=== PATIENT | female | born 1990 | race Caucasian/White ===

== ENCOUNTER 2018-09-26 20:05 | Emergency (ER) | payer MEDICAID ==
[2018-09-26 20:24] LABS: Bilirubin Negative (Negative); Blood, Urine Negative (Negative); Clarity Clear (Clear); Glucose, Urine (Dipstick) Negative (Negative); Leukocyte Negative (Negative); Nitrite Negative (Negative); Pregnancy Test - Urine (BHCG) POSITIVE (Negative); Pregu Control Background? CLEAR/WHITE (CLR/WHITE); Pregu Control Bar Appear? YES (CONTROL BAR); Protein, Urine (Dipstick) Negative (Neg-Trace); Specific Gravity 1.015 (1.002-1.036); Specific Gravity, Urine 1.015 (1.005-1.030); Urobilinogen 0.2 mg/dL (0.2-1.0)
[2018-09-26 20:34] LABS: #Eosinphils 0.2 thou/uL (0.0-0.7); #Lymphocytes 2.4 thou/uL (1.20-3.40); #Monocytes 0.6 thou/uL (0.11-0.59); #Neutrophils 8.8 thou/uL (1.40-6.50); %Basophils 0.4 % (0.0-1.0); %Eosinophils 1.7 % (0.0-10.0); %Lymphocytes 19.5 % (21.0-51.0); %Monocytes 5.1 % (0.0-10.0); %Neutrophils 73.3 % (42.0-75.0); Hemoglobin 11.5 g/dL (12.0-16.0); Mean Corpuscular HGB CONC 33.8 g/dL (32.0-36.0); Mean Corpuscular Hemoglobin 31.3 pg (27.0-31.0); Mean Corpuscular Volume 92.4 fL (78.0-98.0); Mean Platelet Volume 7.8 fL (7.4-10.4); Platelet Count 254 thou/uL (130-400); RBC Distribution Width 11.4 % (11.5-14.5); Red Blood Cell (RBC) Count 3.67 mill/uL (4.20-5.40)
[2018-09-26 20:56] LABS: ALT (SGPT) 12 U/L (8-55); AST (SGOT) 13 U/L (5-34); Albumin 3.4 g/dL (3.5-5.0); Alkaline Phosphatase 69 U/L (40-150); Anion Gap 14 mmol/L (10-20); BUN (Urea Nitrogen) 7 mg/dL (7.0-18.7); Bilirubin, Total 0.2 mg/dL (0.2-1.2); Calc. Creatinine Clearance 0 mL/min (70-130); Carbon Dioxide 20 mmol/L (22-29); Chloride 105 mmol/L (98-107); Estimated GFR-MDRD Greater than 90; Globulin 3.2 g/dL (2.4-3.5); Glucose 95 mg/dL (70-105); Potassium 3.5 mmol/L (3.5-5.1); Protein, Total 6.6 g/dL (6.0-8.3); Sodium 135 mmol/L (136-145)
--- NOTE | 2018-09-26 22:13 | ULT ---
Obstetric sonogram HISTORY: Pelvic pain. FINDINGS: Single intrauterine gestation in variable presentation. Predominantly cephalic. Grade 0 yang centa is anterior. No evidence of placenta previa or abruption. Amniotic fluid is within normal limits. Heart motion demonstrated at 152 bpm. Four-chamber heart. No gross intracranial abnormalities are apparent. 2 vessels are seen within the umbilical, cord. A umbilical cord. Three-vessel CORD not well documented. Measurements are as follows: Biparietal diameter 18 weeks 2 days. Head circumference 17 weeks 5 days. Abdominal circumference 17 weeks 6 days. Femur length 17 weeks 6 days. Hadlock 90 percentile. IMPRESSION: Single viable intrauterine gestation. Estimated gestational age 18 weeks 0 days. Three-vessel umbilical cord. No evidence of placenta previa or abruption.
--- NOTE | 2018-09-26 22:15 | ULT ---
Sonogram right lower quadrant HISTORY: Right lower quadrant pain. FINDINGS: Sonographic evaluation of the right abdomen in region of pain was performed. Gravid uterus partially visualized. No free fluid or fluid collections. Appendix not directly visualized. IMPRESSION: Nonvisualization of the appendix. No significant abnormalities are demonstrated.
== END 2018-09-26 22:31 | disposition home or self-care (01) ==
LOC: ERS 20:05
DX: O99.89 Other specified diseases and conditions complicating pregnancy, childbirth and the puerperium (principal); R10.30 Lower abdominal pain, unspecified; Z3A.18 18 weeks gestation of pregnancy; Z87.891 Personal history of nicotine dependence
CPT/HCPCS: 36415; 76705; 76856; 80053; 81003; 81025; 85025; 93976

== ENCOUNTER 2018-11-29 22:05 | Day surgery (SDC) | payer MEDICAID, OTHER | END 2018-11-29 23:05 | disposition home or self-care (01) | LOC: L&D/OP 22:05 | PROVIDERS: ATTEND Student in an Organized Health Care Education/Training Program | DX: O99.89 Other specified diseases and conditions complicating pregnancy, childbirth and the puerperium (principal); R10.9 Unspecified abdominal pain; R07.9 Chest pain, unspecified ==

== ENCOUNTER 2018-11-29 23:07 | Observation (INO) | payer MEDICAID, OTHER ==
[2018-11-29 23:46] LABS: #Eosinphils 0.2 thou/uL (0.0-0.7); #Lymphocytes 2.3 thou/uL (1.20-3.40); #Monocytes 0.7 thou/uL (0.11-0.59); #Neutrophils 8.5 thou/uL (1.40-6.50); %Basophils 0.4 % (0.0-1.0); %Eosinophils 1.4 % (0.0-10.0); %Lymphocytes 19.8 % (21.0-51.0); %Monocytes 5.6 % (0.0-10.0); %Neutrophils 72.9 % (42.0-75.0); Hemoglobin 12.6 g/dL (12.0-16.0); Mean Corpuscular HGB CONC 34.8 g/dL (32.0-36.0); Mean Corpuscular Hemoglobin 31.2 pg (27.0-31.0); Mean Corpuscular Volume 89.8 fL (78.0-98.0); Mean Platelet Volume 7.3 fL (7.4-10.4); Platelet Count 279 thou/uL (130-400); RBC Distribution Width 11.4 % (11.5-14.5); Red Blood Cell (RBC) Count 4.04 mill/uL (4.20-5.40); White Blood Cell (WBC) Count 11.6 thou/uL (4.8-10.8)
[2018-11-30 00:05] LABS: ALT (SGPT) 12 U/L (8-55); AST (SGOT) 13 U/L (5-34); Albumin 3.6 g/dL (3.5-5.0); Alkaline Phosphatase 99 U/L (40-150); Anion Gap 11 mmol/L (10-20); BUN (Urea Nitrogen) 9 mg/dL (7.0-18.7); Bilirubin, Total 0.2 mg/dL (0.2-1.2); Calc. Creatinine Clearance 0 mL/min (70-130); Calcium 9.8 mg/dL (7.8-10.44); Carbon Dioxide 23 mmol/L (22-29); Chloride 105 mmol/L (98-107); Estimated GFR-MDRD Greater than 90; Globulin 3.5 g/dL (2.4-3.5); Glucose 90 mg/dL (70-105); Lipase 46 U/L (8-78); Potassium 3.5 mmol/L (3.5-5.1); Protein, Total 7.1 g/dL (6.0-8.3); Sodium 135 mmol/L (136-145)
[2018-11-30] MEDS ORDERED: Mag-Al 1200 mg/1200 mg/30 ML UDCUP ONE (00:19)
[2018-11-30] MEDS ORDERED: Acetaminophen 500 MG TAB ONE (00:19)
[2018-11-30] MEDS ORDERED: Lidocaine Viscous Sol 2% 15 ml UD Cup ONE (00:19)
[2018-11-30] MEDS ORDERED: Ondansetron PF 4 MG/2 ML Vial ONE (01:09)
[2018-11-30] MEDS ORDERED: Morphine 4 MG/ML VIAL ONE ×2 (01:09→02:13)
[2018-11-30] MEDS ORDERED: Morphine 4 MG/ML VIAL SLOW IVP PRN ×2 (04:20→04:23)
[2018-11-30] MEDS ORDERED: Promethazine HCl 25 MG/ML VIAL IM/IV PRN (04:24)
[2018-11-30] MEDS ORDERED: Lactated Ringer's 1,000 ML IV SCH (04:45)
[2018-11-30 04:50] VITALS: BP 130/72; TEMP 98.4
[2018-11-30 04:51] VITALS: BMI 32.9
--- NOTE | 2018-11-30 07:56 | ULT ---
PRELIMINARY REPORT/[facility]/EMERGENCY AFTER HOURS PROCEDURE: EXAM: US Abdomen Limited, Right Upper Quadrant EXAM DATE/TIME: 11/30/2018 12:17 AM CLINICAL HISTORY: 28 years old, female; Abdominal pain; ; Patient HX: Epigastric pain today, getting worse; Add itional info: Patient 27 wks . TECHNIQUE: Imaging protocol: Real-time ultrasound of the abdomen with image documentation. Examination was focus ed on the right upper quadrant. COMPARISON: No relevant prior studies available. FINDINGS: Liver: No masses. Gallbladder: Gallbladder distended at 11 cm but without stone, sludge, or wall thickening. Common bile duct: 3 mm. No stones. No dilation. Pancreas: Visualized pancreas is unremarkable. Right kidney: 11.0 cm in length. No mass. No hydronephrosis. IMPRESSION: Distended gallbladder. Otherwise unremarkable exam. Thank you for allowing us to participate in the care of your patient. Dictated and Authenticated by: Maine Garza MD 11/30/2018 12:55 AM Central Time ([place] & [place]) FINAL REPORT GALLBLADDER ULTRASOUND: Final report is in agreement with the preliminary report provided above. No evidence of cholelithiasis or acute cholecystitis.
--- NOTE | 2018-11-30 08:26 | CT ---
PRELIMINARY REPORT/[facility]/EMERGENCY AFTER HOURS PROCEDURE: EXAM: CT Angiography Chest With Contrast EXAM DATE/TIME: 11/30/2018 1:44 AM CLINICAL HISTORY: 28 years old, female; Chest pain; Patient HX: 28 y/o F, currently at 6 mo gestation, present to ED following eval on l&d for cp. No h/o dvt, pe. High ddimer 2.2 TECHNIQUE: Imaging protocol: Computed tomographic angiography of the chest with intravenous contrast. 3D renderi ng: MIP reconstructed images were created and reviewed. COMPARISON: No relevant prior studies available. FINDINGS: Pulmonary arteries: No pulmonary emboli. Aorta: No aortic aneurysm. No aortic dissection. Lungs: No focal infiltrate. No masses. Pleural space: No pneumothorax. No pleural effusion. Heart: No cardiomegaly. No pericardial effusion. Lymph nodes: Unremarkable. No enlarged lymph nodes. Bones/joints: Unremarkable. No acute fracture. Soft tissues: Unremarkable. IMPRESSION: No acute findings. Thank you for allowing us to participate in the care of your patient. Dictated and Authenticated by: Maine Garza MD 11/30/2018 1:59 AM Central Time ([place] & [place]) FINAL REPORT CT ANGIOGRAM OF THE CHEST: Date: 11/30/18 HISTORY: Chest pain. Evaluate for pulmonary artery dissection. Patient is currently 6 months . COMPARISON: None. TECHNIQUE: CT angiogram of the chest is performed in the axial plane. Three-dimensional reformatted images are s ubmitted for interpretation. FINDINGS: No mediastinal mass, lymphadenopathy, or hematoma. Heart size normal. No significant pericardial flui d. Visualized upper solid abdominal viscera is unremarkable. Trachea and central bronchi are patent. No masses or consolidation. Minimal dependent atelectatic pauline nges. No pleural effusion or pneumothorax. Adequate contrast opacification of pulmonary arterial system to the level of the segmental arteries. No filling defect to suggest thromboembolism. IMPRESSION: This report is in agreement with the preliminary report by Jacque. No evidence of pulmonary artery embo lism to the level of the segmental arteries. POS: [facility]
--- NOTE | 2018-11-30 08:41 | PDOC.LDPN ---
Labor & Delivery Progress Note - Subjective Subjective: comfortable (, epigastric/chest pain has completely resolved. Hungry. No ctx, VB LOF. Good FM. ) - Objective Vital signs reviewed and normal: yes General: NAD Uterine fundus: non tender FHT: category 1 - Assessment (1) Acute epigastric pain Code(s): R10.13 - EPIGASTRIC PAIN Current Visit: Yes Status: Acute -: Negative w/u other than gallbladder distension. Normal labs. Not consistent with acute cholecystitis, appendicitis or pancreatitis. W/u neg for SC or PE. Likely c/w GERD. Rec scheduled pepcid BID. FHT Cat 1 for GA. DC home. FU as scheduled in clinic.
--- NOTE | 2018-11-30 08:54 | RAD ---
FRONTAL VIEW CHEST: COMPARISON: No prior comparison. INDICATION: Chest pain. FINDINGS: There is no lobar consolidation, effusion, or pneumothorax. Mild elevation of the right hemidiaphrag m is present. There is accentuation of the cervical spine by portable technique. IMPRESSION: No focal consolidation. POS: C
[2018-11-30] MEDS ORDERED: Famotidine 20 MG TAB PO SCH (09:00)
--- NOTE | 2018-11-30 10:21 | HP ---
ADDITIONAL ATTENDING PHYSICIAN: Janelle Lagunas MD EVALUATING PHYSICIAN: Irwin Miramontes MD CHIEF COMPLAINT: Chest pain. HISTORY OF PRESENT ILLNESS: Ms. Beltrán is a 28-year-old white female, G2, P1-0-0-1 with an estimated date of confinement of 02/25/2019, who presents to the emergency room this evening complaining of acute onset chest pain with associated right upper quadrant pain. She has had pain, but no significant nausea. She denies fever or chills. She also denies associated ruptured membranes or vaginal bleeding. Due to chest pain, she was evaluated in the emergency room and evaluation there demonstrated a normal CT angiogram of the chest and a normal abdominal ultrasound that showed only a distended gallbladder. Her chest x-ray and EKG were both normal. She is brought to Labor and delivery now for pain management and further consideration. PAST OBSTETRICAL HISTORY: Includes one section at term apparently done for distress. PAST MEDICAL HISTORY: None. PAST SURGICAL HISTORY: section as above. CURRENT MEDICATIONS: vitamin. ALLERGIES: NO KNOWN ALLERGIES. SOCIAL HISTORY: Denies tobacco, alcohol, or drug use. FAMILY HISTORY: Unremarkable. REVIEW OF SYSTEMS: Denies decreased movement, ruptured membranes, or vaginal bleeding. PHYSICAL EXAMINATION: VITAL SIGNS: In Labor and Delivery, her vital signs are stable and she is afebrile. GENERAL: She feels improved after receiving pain medicine in the emergency room. CHEST: Clear. CARDIOVASCULAR: Regular rate and rhythm. ABDOMEN: Soft, gravid, and nontender. PELVIC: Deferred. monitoring shows stable heart tones with no contractions. LABORATORY DATA: White count 11.6, hemoglobin and hematocrit are 12.6 and 36.2, and platelet counts 279,000. D-dimer is elevated at 2.20. Sodium 135, potassium 3.5, creatinine 0.71, glucose is 90, total bilirubin 0.2, AST 13, ALT 12, and alkaline phosphatase 99. Troponin less than 0.010. Lipase is 46. ASSESSMENT: 1. A 27-week intrauterine . 2. Right upper quadrant pain with chest pain. PLAN: In view of her negative workup for pulmonary embolism and negative cardiac evaluation and her only finding being that of a distended gallbladder, she will be observed here in Labor and Delivery and be given pain medicine and antiemetic. Consideration of either a GI or a surgical consult will be made in the morning. Dr. Lagunas has been notified. Job ID: [id number]
== END 2018-11-30 10:15 | disposition home health service (06) ==
LOC: ERS 23:07 → L&D 11-30 03:19
PROVIDERS: ADMIT Obstetrics & Gynecology; ATTEND Obstetrics & Gynecology
DX: O99.89 Other specified diseases and conditions complicating pregnancy, childbirth and the puerperium (principal); R10.13 Epigastric pain; R07.9 Chest pain, unspecified; Z3A.27 27 weeks gestation of pregnancy
CPT/HCPCS: 36415; 59025; 71045; 71275; 76705; 80053; 83690; 84484; 85025; 85379; 93005; 94760; 96361; 96372; 96374; 96375; 96376; G0378; J0500; J2270; J2405

== ENCOUNTER 2019-02-15 05:18 | Inpatient (IN) | payer OTHER ==
[2019-02-15] MEDS ORDERED: hydrALAZINE 20 MG/ML VIAL SLOW IVP PRN ×2 (05:48→10:40)
[2019-02-15] MEDS ORDERED: Ondansetron PF 4 MG/2 ML Vial IVP PRN ×3 (05:48→10:40)
[2019-02-15] MEDS ORDERED: Promethazine HCl 25 MG/ML VIAL IM PRN ×3 (05:48→10:40)
[2019-02-15] MEDS ORDERED: Bicitra 30 ML UDCUP PO SCH (06:00)
[2019-02-15] MEDS ORDERED: CEFAZOLIN 2 GM in Premix Bag 1 BAG IVPB SCH (06:00)
[2019-02-15 06:34] LABS: Hemoglobin 11.5 g/dL (12.0-16.0); Mean Corpuscular HGB CONC 33.6 g/dL (32.0-36.0); Mean Corpuscular Hemoglobin 29.1 pg (27.0-31.0); Mean Corpuscular Volume 86.6 fL (78.0-98.0); Mean Platelet Volume 8.1 fL (7.4-10.4); Platelet Count 307 thou/uL (130-400); RBC Distribution Width 11.7 % (11.5-14.5); Red Blood Cell (RBC) Count 3.95 mill/uL (4.20-5.40); White Blood Cell (WBC) Count 13.4 thou/uL (4.8-10.8)
[2019-02-15] MEDS ORDERED: Promethazine HCl 25 MG SUPP PR PRN (07:09)
[2019-02-15] MEDS ORDERED: diphenhydrAMINE 50 MG/ML VIAL IVP PRN (07:09)
[2019-02-15] MEDS ORDERED: Naloxone HCl 0.4 mg/ml Vial IV PRN (07:09)
[2019-02-15] MEDS ORDERED: Meperidine HCl/PF 25 MG/ML VIAL SLOW IVP PRN (07:09)
[2019-02-15] MEDS ORDERED: HYDROmorphone 2 MG/ML VIAL SLOW IVP PRN (07:09)
[2019-02-15] MEDS ORDERED: Naloxone HCl 0.4 mg/ml Vial IVP PRN ×2 (07:09)
[2019-02-15] MEDS ORDERED: L&D-Morphine 4 MG/ML VIAL SLOW IVP PRN (07:09)
[2019-02-15] MEDS ORDERED: Ondansetron HCl/PF 4 MG/2 ML Vial IVP PRN (07:09)
[2019-02-15 07:11] LABS: HBSAg Index 0.12 S/CO (0-0.99); Hep B Surf Ag Non-Reactive S/CO (NonReactive)
[2019-02-15] MEDS ORDERED: Oxytocin 10 UNITS/ML VIAL ONE ×2 (07:15→08:03)
[2019-02-15] MEDS ORDERED: Communication Order-Pharmacy FS SCH (07:15)
[2019-02-15] MEDS ORDERED: Ketorolac Tromethamine 30 MG/ML VIAL IVP SCH (07:15)
[2019-02-15] MEDS ORDERED: Ondansetron PF 4 MG/2 ML Vial ONE (07:15)
[2019-02-15] MEDS ORDERED: MORPHINE 5 MG/10 ML PF VIAL ONE (07:15)
[2019-02-15] MEDS ORDERED: ePHEDrine/0.9% NaCl/PF SYRINGE 50 mg/10 ml ONE (07:15)
[2019-02-15] MEDS: Lactated Ringer's 1,000 ML IV SCH ×2 (07:20→18:09)
--- NOTE | 2019-02-15 07:30 | PDOC.LDHP ---
Labor and Delivery H&P Chief complaint: scheduled section HPI: 28yo at 39w0d by LMP for RCS. No complaints. Current gestational age (weeks): 39 Due date: 02/22/19 Dating criteria: last menstrual period Grav: 2 Para: 1 Current complications: none Abnormal US findings: Yes (SUA) Past Medical History: LSIL pap, for colpo PP Current medications: pre- vitamins, iron Previous surgical history: low tranverse CS, other (hernia repair age 8mo old) Allergies/Adverse Reactions: Allergies Allergy/AdvReac Type Severity Reaction Status Date / Time No Known Drug Allergies Allergy Verified 11/30/18 04:56 Social history: none - Physical Exam Vital signs reviewed and normal: yes General: NAD Heart: RRR Lungs: CTAB Abdomen: gravid Extremeties: no edema FHT: category 1 - OB Labs Blood type: O RH: positive Antibody Screen: negative HIV: negative RPR: negative HEPSAg: negative 1 hour GCT: negative GBS: negative Urine drug screen: negative Rubella: immune - Assessment L&D Assessment: scheduled repeat section - Plan Plan: admit to L&D, to OR for section, informed consent obtained, anesthesia consult for pain management
--- NOTE | 2019-02-15 07:38 | PDOC.OPDEL ---
OB Operative/Delivery Note Delivery Dr/Surgeon: Janneth Assist: PAUL Padilla Pre-Delivery Diagnosis: scheduled section Procedure/Post Delivery Dx: repeat low transverse CS Weeks gestation: 39 Anesthesia: spinal - Findings A Sex: female Weight: 7 lb 9 oz - 1 min: 8 - 5 min: 9 - Additional Findings/Plan Placenta delivered: spontaneous findings: low transverse hysterotomy without extension, normal uterus, normal tubes, normal ovaries Estimated blood loss: 500 Post delivery plan: routine recovery
[2019-02-15] MEDS ORDERED: PHENYLEPHRINE-NS 100 MCG/ML 10 ML SYRINGE ONE (07:46)
[2019-02-15 08:35] VITALS: BMI 42.6
--- NOTE | 2019-02-15 09:34 | OP ---
DATE OF PROCEDURE: 02/15/2019 PREOPERATIVE DIAGNOSES: 1. Intrauterine at 39 weeks and 0 days. 2. Prior section x1, declines trial of labor. 3. Single umbilical artery. POSTOPERATIVE DIAGNOSES: 1. Intrauterine at 39 weeks and 0 days. 2. Prior section x1, declines trial of labor. 3. Single umbilical artery. PROCEDURE PERFORMED: Repeat low transverse section via Pfannenstiel skin incision. ANESTHESIA: Spinal. 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 COMPLICATIONS: None. DRAINS: Hubbard catheter. PATHOLOGY: None. FINDINGS: Female infant, cephalic presentation, clear amniotic fluid. Apgars 8 and 9. Weight 7 pounds and 9 ounces. Hysterotomy without extension. Normal uterus, ovaries, and tubes bilaterally. DESCRIPTION OF PROCEDURE: The patient was taken to the operating room, where spinal anesthesia was obtained without difficulty. The patient was prepped and draped in a sterile fashion in the dorsal supine position with a leftward tilt. After ensuring adequacy of anesthesia, a Pfannenstiel skin incision was made and carried down to the underlying subcutaneous tissue with a knife. The fascia was nicked in the midline with the knife and carried laterally with the Morrison scissors. The superior aspect of the fascia was tented with 2 Gissell's and dissected off the rectus with the Morrison scissors. The rectus perforators were cauterized. The inferior aspect of the fascia was tented with 2 Gissell's and dissected off the rectus down to the pubic symphysis with the Bovie. The rectus was bluntly divided in the midline. The peritoneum was bluntly entered into and manually retracted. The Sridhar O retractor was placed and the lower uterine segment was incised in a transverse fashion extended with a Syed maneuver. The 's head was brought to the hysterotomy and delivered with fundal pressure. The 's cord was clamped and handed to awaiting Fermin team. The placenta was allowed to spontaneously deliver. The uterus was exteriorized, cleared of all clots and debris and the posterior cul-de-sac was lapped out. The uterus was placed back into the abdomen and the hysterotomy was repaired with #1 Monocryl in a running locking fashion with excellent hemostasis noted. The pelvis and pericolic gutters were irrigated and suctioned. Hemostasis was again noted. The Sridhar O retractor was removed. The rectus muscles were examined and noted to be hemostatic. The fascia was reapproximated with a 0 PDS suture x2 with excellent reapproximation. The subcutaneous tissue was irrigated and cauterized of any bleeders and reapproximated with a 2-0 plain gut in a running fashion. The skin was closed with 4-0 Monocryl in a subcuticular fashion. Dermabond was applied as well as the pressure dressing. The patient tolerated the procedure well. Sponge, lap, and needle counts correct x2. The patient was taken to recovery room in stable condition. The patient received Ancef 2 g prior to the procedure. Job ID: [id number]
[2019-02-15] MEDS ORDERED: NS / Oxytocin 40 units/1000ml 1,000 ML ONE (10:00)
[2019-02-15] MEDS ORDERED: Meperidine HCl/PF 25 MG/ML VIAL ONE (10:04)
[2019-02-15] MEDS ORDERED: Ketorolac Tromethamine 30 MG/ML VIAL ONE (10:05)
[2019-02-15] MEDS ORDERED: diphenhydrAMINE 50 MG/ML VIAL ONE (10:05)
[2019-02-15] MEDS: Ketorolac Tromethamine 30 MG/ML VIAL IVP PRN ×3 (10:09→21:32)
[2019-02-15 10:35] LABS: Syphilis Antibody Nonreactive (Nonreactive); Syphilis Antibody Index 0.06 S/CO (<1.00 Non-Reactive)
[2019-02-15] MEDS ORDERED: Adacel (T-DAP) 0.5 ML SYRINGE IM ONE (10:40)
[2019-02-15] MEDS ORDERED: Acetaminophen 325 MG TAB PO PRN (10:40)
[2019-02-15] MEDS ORDERED: Zolpidem Tartrate 5 MG TAB PO PRN (10:40)
[2019-02-15] MEDS ORDERED: HYDROcodone/Acetaminophen 5/325 mg Tablet PO PRN (10:40)
[2019-02-15] MEDS ORDERED: Bisacodyl 10 MG SUPP PR PRN (10:40)
[2019-02-15] MEDS: diphenhydrAMINE 25 MG CAP PO PRN ×2 (14:43→21:53)
[2019-02-15] MEDS: Lanolin Ointment 7 GM TUBE TOP PRN (18:09)
[2019-02-15] MEDS: Ibuprofen 800 MG TAB PO SCH ×2 (18:16→23:07)
[2019-02-15] MEDS: Simethicone Chewable 80 MG TAB PO PRN ×2 (18:32→21:32)
[2019-02-15] MEDS ORDERED: FLU VACC QS2019-20(6MOS UP)/PF 60 MCG/0.5 ML SYRINGE IM ONE (21:00)
[2019-02-15] MEDS: Docusate Calcium (SURFAK) 240 MG CAP PO SCH (21:32)
[2019-02-15] MEDS: HYDROcodone/Acetaminophen 5/325 mg Tablet PO PRN (22:31)
[2019-02-15] MEDS: Prenatal Vitamin 1 TAB PO SCH (23:06)
[2019-02-15] MEDS: Ferrous Sulfate 325 MG TAB PO SCH (23:07)
[2019-02-16] MEDS: HYDROcodone/Acetaminophen 5/325 mg Tablet PO PRN ×5 (03:12→20:29)
[2019-02-16 04:57] LABS: Hemoglobin 10.6 g/dL (12.0-16.0); Mean Corpuscular Hemoglobin 29.7 pg (27.0-31.0); Mean Corpuscular Volume 87.4 fL (78.0-98.0); Mean Platelet Volume 7.8 fL (7.4-10.4); Platelet Count 286 thou/uL (130-400); RBC Distribution Width 11.6 % (11.5-14.5); Red Blood Cell (RBC) Count 3.58 mill/uL (4.20-5.40); White Blood Cell (WBC) Count 12.5 thou/uL (4.8-10.8)
[2019-02-16] MEDS: Ibuprofen 800 MG TAB PO SCH ×3 (05:10→22:15)
[2019-02-16] MEDS: Simethicone Chewable 80 MG TAB PO PRN ×2 (07:38→15:59)
--- NOTE | 2019-02-16 07:45 | PDOC.PP ---
Post Progress Note Post Day #: 1 Subjective: Doing well, complains only of a little soreness when moving. PO intake tolerated: yes Flatus: yes Ambulation: yes Vital Signs (12 hours) Temp Pulse Resp BP BP 02/16/19 03:30 98.1 F 108 H 16 104/70 02/15/19 23:30 98.6 F 84 16 132/78 Weight Weight 204 lb - Physical Examination General: NAD Respiratory: non-labored breathing Abdominal: lochia (normal), no distention, appropriately TTP Fundus firm & at: below umbilicus Skin: CS incision dry & intact (dressing clean, dry and in place), no rash Neurological: no gross focal deficits Psychiatric: A&Ox3, normal affect Result Diagrams: 02/16/19 04:23 Additional Labs: Post Labs Blood Type O POSITIVE 02/15/19 06:15 Hep Bs Antigen Non-Reactive S/CO (NonReactive) 02/15/19 06:15 (1) delivery delivered Code(s): O82 - ENCOUNTER FOR DELIVERY WITHOUT INDICATION Status: Acute - Assessment/Plan Continue routine postop management. D/c home tomorrow or Monday.
[2019-02-16] MEDS: Docusate Calcium (SURFAK) 240 MG CAP PO SCH ×2 (10:22→22:15)
[2019-02-16] MEDS: Prenatal Vitamin 1 TAB PO SCH (10:22)
[2019-02-16] MEDS: Lanolin Ointment 7 GM TUBE TOP PRN (11:55)
[2019-02-16] MEDS: Ferrous Sulfate 325 MG TAB PO SCH ×2 (20:24→22:13)
[2019-02-17] MEDS: HYDROcodone/Acetaminophen 5/325 mg Tablet PO PRN ×4 (00:32→13:25)
[2019-02-17] MEDS: Ibuprofen 800 MG TAB PO SCH ×2 (04:44→13:23)
[2019-02-17 08:20] VITALS: BP 108/76; TEMP 98.3
[2019-02-17] MEDS: Docusate Calcium (SURFAK) 240 MG CAP PO SCH (09:05)
[2019-02-17] MEDS: Prenatal Vitamin 1 TAB PO SCH (09:05)
[2019-02-17] MEDS: Ferrous Sulfate 325 MG TAB PO SCH (09:27)
[2019-02-17] MEDS: Lanolin Ointment 7 GM TUBE TOP PRN (12:32)
[2019-02-17] MEDS ORDERED: FLU VACC QS2019-20(6MOS UP)/PF 60 MCG/0.5 ML SYRINGE IM ONE (12:45)
--- NOTE | 2019-02-18 10:02 | DIS ---
DATE OF ADMISSION: 02/15/2019 DATE OF DISCHARGE: 02/16/2019 HOSPITAL COURSE: The patient is a 28-year-old, G2, P1001, now G2, P2002, who was admitted for scheduled section at 39 and zero weeks. She experienced no complications. She has reported some pain that has been much manageable with her pain medications. Activity limitations were discussed including no lifting more than 10 pounds for the next 4 to 6 weeks. Please return to hospital if experiencing worsening abdominal pain, fever, purulent drainage or increased bleeding. The patient voiced she is ready to go home. Indicated understanding, answered all questions. PRIMARY DIAGNOSES: 1. Status post repeat low transverse section. 2. Anemia. DISCHARGE MEDICATIONS: 1. Iron. 2. Prole. POSTDISCHARGE INSTRUCTIONS: Please follow up with Dr. Lagunas in the next two weeks. Job ID: [id number] MTDD
--- NOTE | 2019-02-20 21:52 | PQF ---
Milena Moreno JANELLE [id number] CLINICAL DOCUMENTATION CLARIFICATION FORM: POST DISCHARGE Addendum to original discharge summary date: ____ Late entry note date: __ DATE:02/20/2019 ATTN: ERNIE ANDERS Please exercise your independent, professional judgment in responding to the clarification form. Clinical indicators are provided on the bottom of this form for your review Please check appropriate box(s): [ ] Acute blood loss anemia [ X ] Post-op anemia related to acute blood loss [ ] Anemia: [ ] Aplastic [ ] Nutritional [ ] Drug induced (specify) ___ [ ] Hemolytic [ ] Hereditary [ ] Acquired [ ] Autoimmune [ ] Non-autoimmune [ ] Enzyme disorder [ ] Chronic Anemia: [ ] Blood loss [ ] Hemolytic [ ] Simple [ ] Due to Vitamin B12 Deficiency [ ] Other [ ] Anemia of Chronic Disease (please specify) [ ] Anemia due to Neoplasm: [ ] Primary [ ] Secondary [ ] Anemia due to (please choose): [ ] Due to Chemotherapy [ ] Due to Radiotherapy [ ] Due to Immunotherapy [ ] Other diagnosis [ ] Unable to determine In addition, please specify: Present on Admission (POA): [ ] Yes [ ] No [ ] Unable to determine For continuity of documentation, please document condition throughout progress notes and discharge summary. Thank You. CLINICAL INDICATORS - SIGNS / SYMPTOMS / LABS Intrauterine at 39 weeks-Documented in OP note on 02/15 by Janneth Lucio Repeat lowtransverse section via pfannenstiel skin incision-Documented in OP note on 02/15 by Janneth Lucio Estimated blood loss-500 ml-Documented in OP note on 02/15 by Janneth Lucio Anemia- Documented in discharge summary on 02/16 by Tabby Adams HGB-11.5 to 10.6,HCT-34.2 to 31.2-Documented in Laboratory RISK FACTORS Repeat lowtransverse section via pfannenstiel skin incision-Documented in OP note on 02/15 by Janneth Lucio TREATMENTS: Ferrous sulfate 325 mg tab-Documented in Medication snapshot [employer] Worker [employer] Winform Viewer (This form is maintained as a part of the permanent medical record) 2014 [employer]. All Rights Reserved [email or web address] [email or web address] [not provided] MTDD
== END 2019-02-17 14:45 | disposition home or self-care (01) | DRG 787 ==
LOC: L&D 05:18 → 3SW 10:49
PROVIDERS: ADMIT Student in an Organized Health Care Education/Training Program; ATTEND Student in an Organized Health Care Education/Training Program
PROC: 10D00Z1 Extraction of Products of Conception, Low, Open Approach (ICD-10-PCS; principal; 2019-02-15)
DX: O34.211 Maternal care for low transverse scar from previous cesarean delivery (principal); D62 Acute posthemorrhagic anemia; Z3A.39 39 weeks gestation of pregnancy; Z37.1 Single stillbirth; O90.81 Anemia of the puerperium
CPT/HCPCS: 36415; 51702; 85027; 86780; 86850; 86900; 86901; 87340; J0690; J1200; J1885; J2175; J2274; J2310; J2405; J2590; Q0163

== ENCOUNTER 2019-02-25 15:24 | Inpatient (IN) | payer OTHER ==
[~2019-02-25 15:24] MED LIST: Iopamidol-370 76% 500 ML 1 ML ONE
[2019-02-25 15:54] LABS: #Basophils 0.1 thou/uL (0.0-0.2); #Eosinphils 0.2 thou/uL (0.0-0.7); #Lymphocytes 1.7 thou/uL (1.20-3.40); #Monocytes 0.5 thou/uL (0.11-0.59); #Neutrophils 6.1 thou/uL (1.40-6.50); %Basophils 0.7 % (0.0-1.0); %Eosinophils 2.9 % (0.0-10.0); %Lymphocytes 20.1 % (21.0-51.0); %Neutrophils 70.4 % (42.0-75.0); Hemoglobin 11.6 g/dL (12.0-16.0); Mean Corpuscular HGB CONC 32.8 g/dL (32.0-36.0); Mean Corpuscular Volume 88.2 fL (78.0-98.0); Mean Platelet Volume 6.8 fL (7.4-10.4); Platelet Count 407 thou/uL (130-400); RBC Distribution Width 12.2 % (11.5-14.5); White Blood Cell (WBC) Count 8.6 thou/uL (4.8-10.8)
[2019-02-25 16:22] LABS: ALT (SGPT) 50 U/L (8-55); AST (SGOT) 48 U/L (5-34); Albumin 3.5 g/dL (3.5-5.0); Alkaline Phosphatase 163 U/L (40-110); Anion Gap 13 mmol/L (10-20); BUN (Urea Nitrogen) 16 mg/dL (7.0-18.7); Bilirubin, Total 0.3 mg/dL (0.2-1.2); Calc. Creatinine Clearance 0 mL/min (70-130); Calcium 9.6 mg/dL (7.8-10.44); Carbon Dioxide 22 mmol/L (22-29); Chloride 107 mmol/L (98-107); Estimated GFR-MDRD 83; Globulin 3.6 g/dL (2.4-3.5); Glucose 87 mg/dL (70-105); Potassium 4.1 mmol/L (3.5-5.1); Protein, Total 7.1 g/dL (6.0-8.3); Sodium 138 mmol/L (136-145)
[2019-02-25] MEDS ORDERED: Ondansetron PF 4 MG/2 ML Vial ONE (17:31)
[2019-02-25] MEDS ORDERED: Morphine 4 MG/ML VIAL ONE (17:31)
--- NOTE | 2019-02-25 18:37 | CT ---
CT ABDOMEN AND PELVIS WITH IV CONTRAST: HISTORY: The patient is post section on 02/15/2019. The patient is being treated for mastitis, which has not improved. COMPARISON: None. FINDINGS: The breasts are not evaluated on this exam. The lung bases are clear. The liver is enlarged in craniocaudal dimensions, measuring 19 cm. The spleen is enlarged in AP dimen sions, measuring 14 cm. The splenic vein does appear mildly prominent. The pancreas, bilateral adrenal glands, kidneys, and abdominal aorta demonstrate a normal CT appearan ce. The urinary bladder is decompressed and not well evaluated on this exam. the uterus is enlarged and does demonstrate mild heterogeneity with heterogeneous in the region of th e endometrial canal. These findings may be attributable to the patient's post state of the [facility]. Infection or hemorrhage within the endometrial canal cannot be excluded based on this exam. There is a small amount of fluid within the subcutaneous soft tissues in an infraumbilical location, which may be attributable to the patient's post surgical changes. A focal area of skin thickening is also present in an infraumbilical location, also likely attributable to post surgical change. A small amount of retained fecal material is seen throughout the colon. Loops of small bowel are norm al in caliber. The appendix is visualized and normal in caliber. IMPRESSION: 1. Enlarged heterogeneous uterus with heterogeneous material in the endometrial canal. These findings are most likely attributable to the patient's recent post state and recent surgery. Infection or hemorrhage within the endometrial canal cannot be excluded based on CT evaluation. 2. Mild enlargement of the liver and spleen. 3. Small amount of retained fecal material throughout the colon. 4. No CT evidence of appendicitis. 5. No free fluid or fluid collection is seen in the abdomen or pelvis. 6. Post surgical changes, subcutaneous soft tissues, anterior pelvis. POS: OFF
--- NOTE | 2019-02-25 19:01 | ULT ---
LIMITED ULTRASOUND LEFT BREAST: HISTORY: The patient is being treated for mastitis. The patient is currently breast-feeding and has areas of r edness at the 11 o'clock and 8 o'clock positions of the right breast. The patient states the conditio n has gotten worse. FINDINGS: There is an area of heterogeneity seen at the 11 o'clock position of the left breast. There is also a n irregular area of heterogeneity at the 8 o'clock position of the left breast which measures 2.3 cm. These areas may be related to infection, given the patient's clinical history. Findings at the 11 o' clock position are not thought to represent a fluid collection related to abscess collection; however , findings at the 8 o'clock position could potentially represent a collection with a large amount of heterogeneous material and\or sepatations. There are anechoic areas seen within the retroareolar rustam on left breast which ground mixer noted demonstrated a more tubular appearance on real-time imagi ng, suggesting dilated ducts. IMPRESSION: Areas of heterogeneity at the 11 o'clock and 8 o'clock positions left breast, worrisome for infectiou s process given the patient's clinical history. The heterogeneity at the 8 o'clock position appears m ore well defined, measuring 2.3 cm, and this could potentially represent an irregular collection with debris or septations, possibly representing a developing small abscess collection. POS: OFF
[2019-02-25] MEDS ORDERED: Ampicillin/Sulbactam 3 GM in Sodium Chloride 0.9% 100 ML IVPB SCH (20:30)
[2019-02-25] MEDS ORDERED: Acetaminophen 325 MG TAB PO PRN (22:17)
[2019-02-25] MEDS ORDERED: Ondansetron PF 4 MG/2 ML Vial IVP PRN (22:17)
[2019-02-25] MEDS ORDERED: Ondansetron ODT 4 MG TAB SL PRN (22:17)
[2019-02-25 22:36] VITALS: BMI 38.6
[2019-02-26] MEDS ORDERED: HYDROcodone/Acetaminophen 5/325 mg Tablet PO SCH (01:15)
[2019-02-26] MEDS: Ampicillin/Sulbactam 3 GM, Admixture Fee 1 EACH in Sodium Chloride 0.9% 100 ML IVPB SCH ×4 (01:56→20:19)
[2019-02-26] MEDS: Ibuprofen 800 MG TAB PO PRN ×3 (02:07→17:37)
[2019-02-26] MEDS: HYDROcodone/Acetaminophen 5/325 mg Tablet PO PRN ×4 (05:10→21:22)
--- NOTE | 2019-02-26 10:29 | HP ---
PRIMARY OB: . Eri Woodruff. CHIEF COMPLAINT: Failed outpatient management of mastitis, breast pain and pelvic pain. HISTORY OF PRESENT ILLNESS: The patient is a 28-year-old postop day 9 for a repeat . She was seen in the office yesterday by Eri Woodruff after being placed on antibiotics for mastitis over the phone. The patient reports she had been taking the Keflex for least 2-1/2 days and did not show any improvement and was sent here for failed outpatient management. The patient also reports that she has been having pelvic pain and tenderness, though this is not her primary concern. The patient denies fever, headache, chest pain, shortness of breath, nausea, vomiting, diarrhea, constipation, hip problems, knee problems, muscle weakness. Denies any vaginal bleeding of significance. PAST MEDICAL HISTORY: Negative. PAST SURGICAL HISTORY: She has had now two prior C-sections and hernia repair at 8 months of age. SOCIAL HISTORY: Denies drug, alcohol, tobacco use. ALLERGIES: NO KNOWN DRUG ALLERGIES. MEDICATIONS: The patient came in on Keflex and vitamins and ibuprofen. REVIEW OF SYSTEMS: Per HPI. PHYSICAL EXAMINATION: VITAL SIGNS: The patient had a T-max of 101, pulse of 104, blood pressure 114/ 55, respiratory rate of 18, saturating 96% on room air. At time of evaluation this morning, the patient had a temperature of 97.7, pulse is 76, blood pressure 110/ 59, respiratory rate of 14, saturating 96% on room air. GENERAL: She appears to be in no acute distress. Her left breast is very tender for her. She is alert, oriented, cooperative, pleasant to interact with. HEAD: Normocephalic, atraumatic. LUNGS: Clear to auscultation bilaterally. HEART: Regular rate and rhythm. ABDOMEN: Soft. Incision is clean, dry, and intact. BREASTS: Her left breast has diffuse erythema across the upper region from 9 o'clock to 2 o'clock incorporating most of that breast tissue close to the areola. She is very tender to palpation with some areas of induration. PELVIC: Her pelvic area is tender to deep palpation suprapubically. LABORATORY STUDIES: White count is 8.6, hemoglobin 11.6, hematocrit 35.3, and platelets of 407,000. Sodium 138, potassium 4.1, creatinine 0.82, glucose 87. Lactic acid 0.8. AST of 48. CT scan shows an enlarged heterogeneous uterus with heterogeneous material in the endometrial canal. No free fluid in the pelvis. Postsurgical changes in the subcutaneous tissue at the area of her Pfannenstiel incision. Ultrasound for breast shows an area at 8 o'clock of more defined heterogenicity of about 2.3 cm, representing a potential abscess. ASSESSMENT AND PLAN: The patient is a 28-year-old female who is postop day 9 with mastitis, failing outpatient management on Keflex that she had been taking 4 times a day and a possible endomyometritis. The patient has been placed on Unasyn in the emergency room, which should cover most concerning organisms. This morning she reports the redness in her breast is getting improved, though the pain at this time still is not significantly better. We will continue to watch throughout the day and if she is not showing signs of improvement, may need to add coverage for anaerobes more effectively. Job ID: [id number] MTDD
--- NOTE | 2019-02-26 14:54 | CON ---
DATE OF CONSULTATION: 02/26/2019 REQUESTING PHYSICIAN: Irwin Miramontes MD HISTORY OF PRESENT ILLNESS: This is a 28-year-old woman, who is 11 days status post repeat low transverse . The patient was admitted yesterday with left mastitis, which required oral antibiotics 3 days ago. She felt improved and was therefore seen in Emergency Department. Broad-spectrum IV antibiotics was initiated. The patient underwent ultrasound of the left breast yesterday, which was concerning for 2.3 cm fluid collection at 8 o'clock. Left breast abscess was suspected, for which the patient was referred to General Surgery. At the time of my evaluation, the patient reports decreasing left breast pain. She denies any fevers or chills. PAST MEDICAL HISTORY: She has no chronic medical problems. PAST SURGICAL HISTORY: Pertinent for x2 and hernia repair as an . SOCIAL HISTORY: She denies any cigarette smoking, ethanol, or illicit drug abuse. ALLERGIES: THE PATIENT HAS NO KNOWN DRUG ALLERGIES. PREHOSPITAL MEDICATIONS: Includes; 1. Recently prescribed Keflex. 2. Currently, she is on Unasyn 3 g IV q.6 hours. REVIEW OF SYSTEMS: A 10-point review of systems essentially unremarkable except as stated in past medical history and chief complaint. PHYSICAL EXAMINATION: GENERAL: Reveals a 28-year-old obese woman, who is otherwise interactive and appears stated age. The patient is alert and oriented x3, appears to be in no acute distress at time of my evaluation. VITAL SIGNS: Include blood pressure is 114/68, pulse is 73, respiratory rate is 20, temperature is 98.5 degrees Fahrenheit, maximum temperature in the last 24 hours is 101 degrees Fahrenheit, and oxygen saturation 96% on room air. HEENT: Normocephalic and atraumatic. Pupils are equal, round, and reactive to light and accommodation. HEART: Reveals regular rate and rhythm. No murmurs or gallops auscultated. LUNGS: Clear to auscultation bilaterally. Breathing, regular and unlabored. ABDOMEN: Soft, nontender, and nondistended. BREASTS: Specific to left breast, there was a previous pen markings, which established the borders of the diffuse redness spanning almost the entire breasts from this admission. At the time of this evaluation, the redness had completely resolved down to the areola. There is minimal residual tenderness to palpation at 2 o'clock. There is no flocculence palpated either at 8 or 11 o'clock. The nipple is not retractile. LABORATORY FINDINGS: Today includes a CBC from yesterday with 8600 white blood cells, hemoglobin and hematocrit 11.6 and 35.3 respectively. Platelet count is 407,000. IMPRESSION: Left breast mastitis. There is no appreciable clinical evidence of localized abscess at this time. RECOMMENDATION: Continue with conservative management and broad-spectrum antibiotics as prescribed. We will continue with serial physical examination and make further recommendations as necessary. If there is any localized flocculence, localized redness, or tenderness to suggest an abscess, we will give consideration to incision and drainage at that point in time. The above findings and recommendations have been discussed with the patient in the presence of her nurse at bedside. The patient indicates understanding of information given. I have answered her questions. Thank you again, Dr. Miramontes, for allowing me the opportunity to participate in the care of this patient. Job ID: [id number]
[2019-02-27] MEDS: Ibuprofen 800 MG TAB PO PRN ×3 (01:54→21:36)
[2019-02-27] MEDS: Ampicillin/Sulbactam 3 GM, Admixture Fee 1 EACH in Sodium Chloride 0.9% 100 ML IVPB SCH ×4 (02:28→20:11)
[2019-02-27] MEDS: HYDROcodone/Acetaminophen 5/325 mg Tablet PO PRN (02:29)
--- NOTE | 2019-02-27 06:38 | PDOC.PP ---
Post Progress Note Post Day #: POD10 Subjective: Feeling better, reports less breast tenderness. PO intake tolerated: yes Flatus: yes Vital Signs (12 hours) Temp Pulse Resp BP Pulse Ox 02/27/19 04:00 97.7 F 75 16 108/60 96 02/27/19 00:00 97.9 F 71 16 115/68 98 02/26/19 19:08 98.8 F 72 16 127/82 97 Weight Weight 83.91 kg - Physical Examination General: NAD Abdominal: appropriately TTP Skin: CS incision dry & intact Deviation from normal: R breast with less redness, less tender Psychiatric: normal affect Result Diagrams: 02/25/19 15:45 02/25/19 15:45 - Assessment/Plan Improving on Unasyn #2, cont. x 48 hrs AF Consult by Dr. Payan greatly appreciated, he say no area c/w focal abscess but will re-examine her today.
--- NOTE | 2019-02-27 09:37 | PRG ---
DATE OF SERVICE: 02/27/2019 TIME: In brief, I evaluated the patient at bedside at roughly [address] Zarate and his team entered about 2 minutes after I started, so we were able to do the examination of the left breast together. PRINCIPAL DIAGNOSES: 1. Left breast mastitis. 2. IV Antibiotics: Unasyn. PRIOR PROCEDURE: Left Breast Ultrasound SUBJECTIVE: The patient states that she feels better and there is less redness on the breast. She also states less tenderness. She also states that she has improved milk flow from that affected breast when before milk flow was limited. OBJECTIVE: GENERAL: The patient is in no acute distress. VITAL SIGNS: Stable and she is afebrile. On physical examination, the left breast has markedly improved findings with decreased erythema according to Dr. Zarate, who saw her yesterday. On palpation, there is no evidence of tenderness and no palpable masses. The areola nipple complex is normal without skin excoriation. DIAGNOSTIC DATA: Ultrasound; the ultrasound was reviewed with Dr. Zarate and based on where the fluid collection was (about 2 to 3 cm at about 8 o'clock). The examination is nontender. The original erythema was described as being between 12 and 3 o'clock or so. We do not feel that there is a clinically relevant abscess to drain at this time. ASSESSMENT: This is a patient who has had IV antibiotics (Unasyn) since admission with marketed clinical improvement. PLAN: 1. I discussed with the patient that we will continue IV Unasyn for 24 hours. 2. The plan is to send the patient home on clindamycin 300 mg p.o. b.i.d. tomorrow to continue for an additional 4 to 5 days. 3. The patient was on dicloxacillin originally, so we will change the antibiotic in case there is any resistance to that. 4. Clinically, there is no evidence of abscess and Dr. Zarate and I concurred that there is nothing to drain at this time. 5. Due to clinical improvement and nontender breast exam, the ultrasound finding is considered nonspecific and may be lactational change versus true abscess. The morbidity of the old drainage may be more than continued medical management at this time. 6. Once again, we will plan for possible discharge tomorrow. Job ID: [id number] [facility]
--- NOTE | 2019-02-27 12:12 | PRG ---
DATE OF SERVICE: 02/27/2019 SUBJECTIVE: Ms. Moreno is a 28-year-old woman, 12 days status post repeat . The patient was admitted with acute left mastitis. I was asked to see the patient yesterday to exclude a breast abscess. Examination yesterday revealed resolving redness around the breast with resolving associated pain. This morning, the patient is awake and alert. She reports only minimal pain with deep palpation of the superolateral aspect of the left breast. The area of concern by ultrasound has no tenderness overlying the erythema. The redness in the breast has completely resolved including normal-appearing nipple and areola. Palpatory examination reveals no significant tenderness or flocculence. OBJECTIVE: VITAL SIGNS: Vital signs itself reveals blood pressure 104/81, pulse 85, respiratory rate 16, temperature is 97.7 degrees Fahrenheit, and oxygen saturation is 98% on room air. IMPRESSION: Resolving left mastitis. Clearly, no clinical evidence of breast abscess. RECOMMENDATIONS: No surgical indication at this time. The patient will continue antibiotics per primary service. General Surgery will sign off and be available to re-evaluate the patient on demand. Job ID: [id number]
[2019-02-28] MEDS: Ampicillin/Sulbactam 3 GM, Admixture Fee 1 EACH in Sodium Chloride 0.9% 100 ML IVPB SCH ×2 (02:16→09:42)
--- NOTE | 2019-02-28 06:36 | DIS ---
DATE OF ADMISSION: 02/25/2019 DATE OF DISCHARGE: 02/28/2019 TIME OF EVALUATION AT BEDSIDE: 0600 hours to 0608 hours. PRINCIPAL DIAGNOSIS: Breast mastitis (left). PROCEDURE PERFORMED: Breast ultrasound. SERVICES CONSULTED: Dr. Zarate with General Surgery. HOSPITAL COURSE: In brief, this patient was admitted by Dr. Gayle with possible lactational mastitis as a most likely diagnosis. She had failed outpatient management. There was also a concern of possible metritis, but with further clinical evaluation, it was felt that the diagnosis most likely was mastitis due to the edema and point tenderness on the left breast. She was placed on IV Unasyn and the breast ultrasound was performed. Dr. Zarate of Surgery evaluated for possible abscess. Although, the ultrasound showed a possible fluid collection, that fluid collection was not in the point tenderness on clinical exam and it was not in the area of erythema. So that fluid collection was considered to be nonsignificant. She clinically improved on the IV antibiotics and I evaluated the patient on February 27 and February 28 and found the erythema to be greatly reduced. No further point tenderness present and she was having better milk flow. When I evaluated the patient in the morning of February 28, she felt that she indeed felt better and was able to go home. She had remained afebrile. She did not have elevated white blood cell count on admission with a white blood cell count on February 25 being 8.6. Vital signs were evaluated by me in the day of discharge confirming that she is afebrile and normotensive. The decision was made to send her home on February 28, 2019, with clindamycin as her oral antibiotic. She will continue that for about 5 additional days. I will instruct her to follow up with Eri Woodruff next week to ensure resolution. Job ID: [id number]
[2019-02-28 07:50] VITALS: BP 114/73; TEMP 97.8
== END 2019-02-28 11:00 | disposition home or self-care (01) | DRG 776 ==
LOC: ERS 15:24 → OBSVTOIN 20:41 → 3SE 20:41
PROVIDERS: ADMIT Obstetrics & Gynecology; ATTEND Obstetrics & Gynecology
DX: O91.22 Nonpurulent mastitis associated with the puerperium (principal)
CPT/HCPCS: 36415; 74177; 80053; 83605; 85025; 87040; 96361; 96365; 96375; J0295; J2270; J2405; J3490; Q9967

== ENCOUNTER 2023-10-02 04:59 | Emergency (ER) | payer SELFPAY ==
[2023-10-02 06:14] LABS: #Basophils 0.06 10x3/uL (0.0-0.2); %Basophils 0.4 % (0.0-1.0); %Lymphocytes 19.2 % (21.0-51.0); %Monocytes 5.6 % (0.0-10.0); Hematocrit 39.1 % (36.0-47.0); Hemoglobin 12.7 g/dL (12.0-16.0); Mean Corpuscular HGB CONC 32.5 g/dL (32.0-36.0); Mean Corpuscular Hemoglobin 28.6 pg (27.0-31.0); Mean Corpuscular Volume 88.1 fL (78.0-98.0); Mean Platelet Volume 9.9 fL (7.4-10.4); Platelet Count 334 10x3/uL (130-400); RBC Distribution Width 13.3 % (11.5-14.5); Red Blood Cell (RBC) Count 4.44 mill/uL (4.20-5.40)
[2023-10-02 06:42] LABS: BHCG - Serum Negative (NEGATIVE); Pregs Control Background? CLEAR/WHITE (CLR/WHITE); Pregs Control Bar Appear? YES (CONTROL BAR)
[2023-10-02 06:47] LABS: ALT (SGPT) 11 U/L (8-55); AST (SGOT) 17 U/L (5-34); Albumin 3.7 g/dL (3.5-5.0); Alkaline Phosphatase 85 U/L (40-110); Anion Gap 17 mmol/L (10-20); BUN (Urea Nitrogen) 10 mg/dL (7.0-18.7); Bilirubin, Total 0.2 mg/dL (0.2-1.2); Calc. Creatinine Clearance 0 mL/min (70-130); Calcium 9.1 mg/dL (7.8-10.44); Carbon Dioxide 20 mmol/L (22-29); Chloride 108 mmol/L (98-107); Estimated GFR 117; Globulin 3.6 g/dL (2.4-3.5); Glucose 97 mg/dL (70-105); Potassium 3.7 mmol/L (3.5-5.1); Protein, Total 7.3 g/dL (6.0-8.3); Sodium 141 mmol/L (136-145)
[2023-10-02 06:54] LABS: Troponin I Less than 0.010 ng/mL (< 0.028)
[2023-10-02] MEDS ORDERED: Ondansetron PF 4 MG/2 ML Vial ONE (09:14)
[2023-10-02] MEDS ORDERED: Iopamidol-370 76% 500 ML MDV (1 ML CHARGE) ONE (11:31)
== END 2023-10-02 11:33 | disposition home or self-care (01) ==
LOC: ERS 04:59
DX: R06.02 Shortness of breath (principal); Z55.6 Problems related to health literacy; F17.290 Nicotine dependence, other tobacco product, uncomplicated
CPT/HCPCS: 36415; 71045; 71275; 80053; 84484; 84703; 85025; 85379; 93005; 96374; J2405; Q9967